=== PATIENT | male | born 1945 | race Caucasian/White ===

== ENCOUNTER 2018-02-15 10:28 | Inpatient (IN) ==
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
[2018-02-15] MEDS ORDERED: ceFAZolin 2 GM Premix Inj 2 GM/50 ML PIGGYBACK IV.SIG ONE (11:00)
[2018-02-15] MEDS ORDERED: Diphtheria/Tetanus/Pertussis Vaccine Inj 0.5 ML Syringe IM ONE (11:00)
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
[2018-02-15 11:32] LABS: Baso # (Auto) 0.1 th/mm3 (0.0-0.2); Baso % (Auto) 0.7 % (0.0-2.0); Eos % (Auto) 0.3 % (0.0-4.0); Hematocrit 39.6 % (39.0-51.0); Hemoglobin 14.3 gm/dL (13.0-17.0); Lymph # (Auto) 0.8 th/mm3 (1.0-4.8); Lymph % (Auto) 8.8 % (9.0-44.0); Mean Corpuscular Hemoglobin 34.6 pg (27.0-34.0); Mean Corpuscular Volume 95.6 fL (80.0-100.0); Mean Platelet Volume 8.9 fL (7.0-11.0); Mono # (Auto) 0.4 th/mm3 (0.0-0.9); Mono % (Auto) 4.3 % (0.0-8.0); Neut # (Auto) 8.1 th/mm3 (1.8-7.7); Neut % (Auto) 85.9 % (16.0-70.0); Platelet Count 205 th/mm3 (150-450); Red Blood Count 4.14 mil/mm3 (4.50-5.90); Red Cell Distribution Width 12.6 % (11.6-17.2); White Blood Count 9.5 th/mm3 (4.0-11.0)
[2018-02-15 11:33] LABS: Mean Corpuscular HGB Conc 36.2 % (32.0-36.0)
[2018-02-15 11:41] LABS: Activated Partial Thrombo Time 22.4 sec (23.4-31.7); INR 1.1 Ratio; Prothrombin Time 10.8 sec (9.8-11.6)
[2018-02-15 13:57] LABS: Anion Gap 9 meq/L (5-15); Blood Urea Nitrogen 18 mg/dL (7-18); Calcium 8.4 mg/dL (8.5-10.1); Carbon Dioxide 21.9 meq/L (21.0-32.0); Chloride 104 meq/L (98-107); Glomerular Filtration Rate 68 mL/min (>89); Glucose,Random 135 mg/dL (74-106); Potassium 4.4 meq/L (3.5-5.1); Sodium 135 meq/L (136-145)
[2018-02-15] MEDS ORDERED: Sod Chloride 0.9% Inj 1,000 ML IV.SIG SCH (16:45)
[2018-02-15] MEDS ORDERED: Morphine Inj 4 MG/ML Vial IV.PUSH PRN (18:00)
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
[2018-02-15] MEDS ORDERED: Morphine Inj 4 MG/ML Vial IV.PUSH ONE (18:36)
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
[2018-02-15] MEDS: Sod Chloride 0.9% Inj 1,000 ML IV.CONT SCH (19:12)
[2018-02-15] MEDS: Pantoprazole Inj 40 MG Vial IV.PUSH SCH (19:13)
[2018-02-15] MEDS ORDERED: Docusate Sodium 100 MG Capsule PO SCH (21:00)
[2018-02-16] MEDS ORDERED: Chlorhexidine Gluconate 2% 1 Pack (2 Cloths) TOPICAL SCH (04:00)
[2018-02-16] MEDS ORDERED: Chlorhexidine Gluconate 2% 1 Pack (2 Cloths) TOPICAL PRN (04:00)
[2018-02-16] MEDS: Sod Chloride 0.9% Inj 1,000 ML IV.CONT SCH ×2 (05:30→18:19)
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
[2018-02-16] MEDS: Methocarbamol 500 MG Tablet PO SCH ×3 (10:50→21:17)
[2018-02-16] MEDS: Senna/Docusate Sodium 8.6/50 MG Tablet PO SCH ×2 (10:50→20:15)
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
--- NOTE | 2018-02-16 16:26 | CT ---
EXAM DATE: 02/16/2018 4:22 PM EST AGE/SEX: 73 years / Male INDICATIONS: Dizziness CLINICAL DATA: This is the patient's initial encounter. Patient reports that signs and symptoms have been present for 1 day and indicates a pain score of 0/10. MEDICAL/SURGICAL HISTORY: Carcinoma, prostatic. Tonsillectomy. RADIATION DOSE: 45.87 CTDI (mGy) COMPARISON: [facility] [place] HEAD W/O CONTRAST, 02/15/2018. . TECHNIQUE: CT of the head without contrast. Using automated exposure control and adjustment of the mA and/or kV according to patient size, radiation dose was kept as low as reasonably achievable to ob tain optimal diagnostic quality images. DICOM format image data is available electronically for revi ew and comparison. FINDINGS: Cerebrum: Minimal bifrontal subdural hygromas are noted. No evidence of midline shift, mass lesion, hemorrhage or acute infarction. No extraaxial fluid collections are seen. Posterior Fossa: The cerebellum and brainstem are intact. The 4th ventricle is midline. The cerebe llopontine angle is unremarkable. Extracranial: The visualized portion of the orbits is intact. Skull: The calvaria is intact. No evidence of skull fracture. CONCLUSION: 1. Minimal bifrontal subdural hygromas. 2. No acute infarct, acute intraparenchymal hemorrhage, midline shift or acute extra-axial bleed. . Electronically signed by: Gene Raya MD Board Certified Radiologist 02/16/2018 4:25 PM EST
[2018-02-16] MEDS: Pantoprazole Inj 40 MG Vial IV.PUSH SCH (20:14)
--- NOTE | 2018-02-17 01:04 | ECG ---
Date Performed: 02/15/2018 Time Performed: 16:36:10 PTAGE: 73 years EKG: PROBABLE SINUS BRADYCARDIA VS JUNCTIONAL WITH SINUS ARRHYTHMIA WITH SHORT RI INTERVAL LEFT VENTRICULAR HYPERTROPHY AND ST-T CHANGE ABNORMAL ECG INTERPRETATION BASED ON A DEFAULT AGE OF 40 YEAR S NO PREVIOUS TRACING DOCTOR: Taz Martin Interpretating Date/Time 02/17/2018 01:03:25
[2018-02-17] MEDS: Sod Chloride 0.9% Inj 1,000 ML IV.CONT SCH (03:55)
[2018-02-17] MEDS: Methocarbamol 500 MG Tablet PO SCH ×2 (05:24→13:02)
[2018-02-17 09:10] VITALS: O2SAT 96
[2018-02-17 09:19] VITALS: RESP 16
[2018-02-17] MEDS: Senna/Docusate Sodium 8.6/50 MG Tablet PO SCH (10:26)
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
[2018-02-17 16:06] VITALS: BP 147/65; PULSE 54; TEMP 97.8
--- NOTE | 2018-02-17 16:26 | P.DCO ---
- Physical Therapy Order: Evaluate and treat, Improve ambulation, Strength and gait training - Home Health Nursing Order: Nursing assessment with vital signs - Case Management Consult Case Management Consult-Home Health: Yes - Certification I have seen patient Vicente Duarte on 02/17/18. My clinical findings support the need for the requested home health care services because: Limited mobility due to disease progression, Deconditioned with increased weakness I certify that my clinical findings support that this patient is homebound because: Impaired cognitive ability/safety
== END 2018-02-17 18:01 | disposition home health service (06) ==
LOC: NEPI 10:28 → EDBD 10:28 → NEDA 10:28 → N06 21:22 → NEDA 21:25
PROVIDERS: ADMIT Surgery; ATTEND Surgery